=== PATIENT | female | born 2000 | race Caucasian/White ===

== ENCOUNTER 2021-02-12 03:56 | Day surgery (SDC) | payer OTHER ==
[2021-02-12 04:23] VITALS: BMI 27.3
[2021-02-12] MEDS ORDERED: hydrALAZINE 20 MG/ML VIAL SLOW IVP PRN (05:18)
== END 2021-02-12 06:59 | disposition home or self-care (01) ==
LOC: CSHLD/OP 03:56
PROVIDERS: ATTEND Student in an Organized Health Care Education/Training Program
DX: O47.1 False labor at or after 37 completed weeks of gestation (principal); Z3A.37 37 weeks gestation of pregnancy; Z79.899 Other long term (current) drug therapy

== ENCOUNTER 2021-02-22 08:14 | Outpatient (CLI) | payer OTHER ==
[2021-02-22 17:37] LABS: SARS-CoV-2 PCR by NAA Not Detected (NotDetected)
== END 2021-02-22 08:15 | disposition home or self-care (01) ==
LOC: CSHLAB 08:14
PROVIDERS: ATTEND Student in an Organized Health Care Education/Training Program
DX: Z01.812 Encounter for preprocedural laboratory examination (principal); Z20.822 Contact with and (suspected) exposure to COVID-19
CPT/HCPCS: U0003; U0005

== ENCOUNTER 2021-02-26 13:17 | Inpatient (IN) | payer OTHER ==
[2021-02-26 23:59] VITALS: BMI 27.3
[2021-02-27] MEDS ORDERED: Promethazine HCl 25 MG/ML VIAL IM PRN ×2 (01:58→09:48)
[2021-02-27] MEDS ORDERED: Carboprost 250 MCG/ML AMP IM PRN (01:58)
[2021-02-27] MEDS ORDERED: Ibuprofen 800 MG TAB PO PRN (01:58)
[2021-02-27] MEDS ORDERED: Butorphanol Tartrate 1 MG/ML VIAL SLOW IVP PRN (01:58)
[2021-02-27] MEDS ORDERED: HYDROcodone/Acetaminophen 5/325 mg Tablet PO PRN (01:58)
[2021-02-27] MEDS ORDERED: Ondansetron PF 4 MG/2 ML Vial IVP PRN ×2 (01:58→09:48)
[2021-02-27] MEDS ORDERED: Misoprostol 200 MCG TAB PR PRN (01:58)
[2021-02-27] MEDS ORDERED: Lidocaine 1% (PF) 30 ML VIAL SC PRN (01:58)
[2021-02-27] MEDS ORDERED: hydrALAZINE 20 MG/ML VIAL SLOW IVP PRN (01:58)
[2021-02-27] MEDS ORDERED: Diphenoxylate HCl/Atropine Tablet PO PRN (01:58)
[2021-02-27] MEDS ORDERED: Acetaminophen 500 MG TAB PO PRN (01:58)
[2021-02-27] MEDS ORDERED: Zolpidem Tartrate 5 MG TAB PO PRN (01:58)
[2021-02-27] MEDS ORDERED: Methylergonovine 0.2 MG/ML VIAL IM PRN (01:58)
[2021-02-27] MEDS ORDERED: NS w/ Oxytocin 30 units 500 ML IV SCH ×2 (02:00)
[2021-02-27] MEDS: Misoprostol 100 MCG TAB VAG SCH (02:15)
[2021-02-27 02:35] LABS: Hemoglobin 11.5 g/dL (12.0-15.5); Mean Corpuscular HGB CONC 32.2 g/dL (32.0-36.0); Mean Corpuscular Hemoglobin 26.8 pg (27.0-33.0); Mean Corpuscular Volume 83.2 fl (81.6-98.3); Mean Platelet Volume 13.8 fl (7.4-10.4); Platelet Count 178 10x3/uL (150-450); RBC Distribution Width 15.6 % (11.5-14.5); Red Blood Cell (RBC) Count 4.29 10x6/uL (3.90-5.03); White Blood Cell (WBC) Count 8.7 10x3/uL (3.5-10.5)
[2021-02-27 03:14] LABS: Syphilis Antibody Nonreactive (Nonreactive); Syphilis Antibody Index 0.04 S/CO (<1.00 Non-Reactive)
[2021-02-27 03:15] LABS: Hep B Surf Ag Non-Reactive S/CO (NonReactive)
[2021-02-27 03:19] LABS: HBSAg Index 0.19 S/CO (0-0.99)
[2021-02-27] MEDS ORDERED: Fentanyl 2 mcg/Bup 0.1% Cadd 100 ML ONE ×3 (09:34→22:52)
[2021-02-27] MEDS ORDERED: ePHEDrine Sulfate 50 MG/10 ML VIAL SLOW IVP PRN (09:48)
[2021-02-27] MEDS ORDERED: Hydrocerin (Eucerin) Cream 120 gm Jar TOP PRN (09:48)
[2021-02-27] MEDS ORDERED: Lactated Ringer's 500 ML IV PRN (09:48)
[2021-02-27] MEDS ORDERED: diphenhydrAMINE 50 MG/ML VIAL IVP PRN (09:48)
[2021-02-27] MEDS ORDERED: Acetaminophen 325 MG TAB PO PRN (09:48)
[2021-02-27] MEDS ORDERED: Naloxone HCl 0.4 mg/ml Vial IVP PRN ×2 (09:48)
[2021-02-27] MEDS ORDERED: Communication Order-Pharmacy FS SCH (10:00)
[2021-02-27] MEDS ORDERED: Fentanyl 2 mcg/Bupivacaine 0.1% Cassette 100 ML EPIDURAL SCH (10:00)
[2021-02-27] MEDS ORDERED: Fentanyl 100 MCG/2 ML VIAL ONE (10:43)
[2021-02-27] MEDS ORDERED: Terbutaline Sulfate 1 MG/ML VIAL FS SCH (14:30)
[2021-02-27] MEDS: Lactated Ringer's 1,000 ML IV SCH (14:38)
[2021-02-28] MEDS ORDERED: Misoprostol 200 MCG TAB ONE (00:52)
[2021-02-28] MEDS ORDERED: Methylergonovine 0.2 MG/ML VIAL ONE (00:53)
[2021-02-28 01:34] LABS: pH (Cord, venous) 7.295 (7.250-7.350)
[2021-02-28] MEDS ORDERED: hydrALAZINE 20 MG/ML VIAL SLOW IVP PRN (04:38)
[2021-02-28] MEDS ORDERED: HYDROcodone/Acetaminophen 5/325 mg Tablet PO PRN (04:38)
[2021-02-28] MEDS ORDERED: Lanolin Ointment 7 GM TUBE TOP PRN (04:38)
[2021-02-28] MEDS ORDERED: Ondansetron PF 4 MG/2 ML Vial IVP PRN (04:38)
[2021-02-28] MEDS ORDERED: Boostrix 0.5 ML (Tdap) VIAL IM ONE (04:38)
[2021-02-28] MEDS ORDERED: Benzocaine-Menthol 82.5 ML CAN TOP PRN (04:38)
[2021-02-28] MEDS ORDERED: Ibuprofen 800 MG TAB PO SCH (06:00)
[2021-02-28] MEDS: Prenatal Vitamin 1 TAB PO SCH (09:28)
[2021-02-28] MEDS: Docusate Calcium (SURFAK) 240 MG CAP PO SCH ×2 (09:28→22:31)
[2021-02-28] MEDS: Milk Of Magnesia 30 ML UDCUP PO SCH (09:29)
[2021-02-28] MEDS: Ibuprofen 800 MG TAB PO SCH (17:49)
[2021-03-01] MEDS: Ibuprofen 800 MG TAB PO SCH ×3 (00:06→17:00)
[2021-03-01 07:20] LABS: #Basophils 0.1 10x3/uL (0.0-0.2); #Eosinphils 0.2 10x3/uL (0.0-0.5); #Monocytes 1.3 10x3/uL (0.0-1.1); #Neutrophils 9.6 10x3/uL (1.5-8.4); %Basophils 0.4 % (0.0-2.0); %Eosinophils 1.5 % (0.0-6.0); %Lymphocytes 18.7 % (18.0-47.0); %Monocytes 9.2 % (0.0-10.0); %Neutrophils 69.6 % (40.0-75.0); Hemoglobin 10.2 g/dL (12.0-15.5); Mean Corpuscular HGB CONC 32.2 g/dL (32.0-36.0); Mean Corpuscular Hemoglobin 27.1 pg (27.0-33.0); Mean Corpuscular Volume 84.1 fl (81.6-98.3); Mean Platelet Volume 13.7 fl (7.4-10.4); Platelet Count 161 10x3/uL (150-450); RBC Distribution Width 16.2 % (11.5-14.5); Red Blood Cell (RBC) Count 3.77 10x6/uL (3.90-5.03); White Blood Cell (WBC) Count 13.7 10x3/uL (3.5-10.5)
[2021-03-01] MEDS ORDERED: Witch Hazel-Glycerin 1 EACH JAR TOP PRN (08:26)
[2021-03-01] MEDS: Milk Of Magnesia 30 ML UDCUP PO SCH (09:04)
[2021-03-01] MEDS: Docusate Calcium (SURFAK) 240 MG CAP PO SCH (09:05)
[2021-03-01] MEDS: Prenatal Vitamin 1 TAB PO SCH (09:05)
[2021-03-01] MEDS: Lactated Ringer's 1,000 ML IV SCH ×2 (10:01→10:04)
[2021-03-01] MEDS: Misoprostol 100 MCG TAB VAG SCH ×2 (10:01→10:04)
[2021-03-02] MEDS: Docusate Calcium (SURFAK) 240 MG CAP PO SCH ×2 (00:56→08:29)
[2021-03-02] MEDS: Ibuprofen 800 MG TAB PO SCH ×2 (00:56→08:29)
[2021-03-02 07:49] VITALS: BP 159/86; TEMP 98.1
[2021-03-02] MEDS: Milk Of Magnesia 30 ML UDCUP PO SCH (08:29)
[2021-03-02] MEDS: Prenatal Vitamin 1 TAB PO SCH (08:29)
== END 2021-03-02 15:05 | disposition home or self-care (01) | DRG 807 ==
LOC: CSHLD 23:26 → UNDOADMIN 23:26 → CSHLD 02-27 01:58 → CSHPP 02-28 04:00
PROVIDERS: ADMIT Student in an Organized Health Care Education/Training Program; ATTEND Student in an Organized Health Care Education/Training Program
PROC: 10D07Z6 Extraction of Products of Conception, Vacuum, Via Natural or Artificial Opening (ICD-10-PCS; principal; 2021-02-28)
PROC: 0UQMXZZ Repair Vulva, External Approach (ICD-10-PCS; 2021-02-28)
PROC: 10907ZC Drainage of Amniotic Fluid, Therapeutic from Products of Conception, Via Natural or Artificial Opening (ICD-10-PCS; 2021-02-28)
DX: O70.0 First degree perineal laceration during delivery (principal); Z37.0 Single live birth; Z3A.40 40 weeks gestation of pregnancy; O99.02 Anemia complicating childbirth; D50.0 Iron deficiency anemia secondary to blood loss (chronic)
CPT/HCPCS: 36415; 51702; 82805; 85025; 85027; 86780; 86850; 86900; 86901; 87340; J0595; J1200; J2001; J2590; J3105; J7120

== ENCOUNTER 2022-08-18 07:15 | Inpatient (IN) | payer OTHER ==
[2022-08-18] MEDS ORDERED: Bupivacaine 0.25% HCL 30 ML VIAL ONE (08:00)
[2022-08-18] MEDS ORDERED: Fentanyl 2 mcg/Bup 0.1% Cadd 100 ML ONE (08:13)
[2022-08-18 08:20] VITALS: BMI 27.8
[2022-08-18 08:20] LABS: Hemoglobin 11.5 g/dL (12.0-15.5); Mean Corpuscular HGB CONC 31.6 g/dL (32.0-36.0); Mean Corpuscular Hemoglobin 24.9 pg (27.0-33.0); Mean Corpuscular Volume 78.8 fl (81.6-98.3); Mean Platelet Volume 12.5 fl (7.4-10.4); Platelet Count 201 10x3/uL (150-450); RBC Distribution Width 15.9 % (11.5-14.5); Red Blood Cell (RBC) Count 4.62 10x6/uL (3.90-5.03); White Blood Cell (WBC) Count 9.7 10x3/uL (3.5-10.5)
[2022-08-18] MEDS ORDERED: Carboprost 250 MCG/ML AMP IM PRN (08:37)
[2022-08-18] MEDS ORDERED: Lidocaine 1% (PF) 30 ML VIAL SC PRN (08:37)
[2022-08-18] MEDS ORDERED: Promethazine HCl 25 MG/ML VIAL IM PRN ×2 (08:37→09:51)
[2022-08-18] MEDS ORDERED: HYDROcodone/Acetaminophen 5/325 mg Tablet PO PRN ×3 (08:37→17:36)
[2022-08-18] MEDS ORDERED: Ondansetron PF 4 MG/2 ML Vial IVP PRN ×3 (08:37→17:36)
[2022-08-18] MEDS ORDERED: Misoprostol 200 MCG TAB PR PRN (08:37)
[2022-08-18] MEDS ORDERED: Ibuprofen 800 MG TAB PO PRN (08:37)
[2022-08-18] MEDS ORDERED: hydrALAZINE 20 MG/ML VIAL SLOW IVP PRN ×2 (08:37→17:36)
[2022-08-18] MEDS ORDERED: Tranexamic Acid 1,000 MG/10 ML VIAL IVP PRN (08:37)
[2022-08-18] MEDS ORDERED: Acetaminophen 500 MG TAB PO PRN (08:37)
[2022-08-18] MEDS ORDERED: Diphenoxylate HCl/Atropine Tablet PO PRN (08:37)
[2022-08-18] MEDS ORDERED: Methylergonovine 0.2 MG/ML VIAL IM PRN (08:37)
[2022-08-18] MEDS ORDERED: Lactated Ringer's 1,000 ML IV SCH (08:45)
[2022-08-18] MEDS ORDERED: NS w/ Oxytocin 30 units 500 ML IV SCH ×2 (08:45)
[2022-08-18] MEDS ORDERED: fentaNYL 50 mcg/mL 1 mL Vial SLOW IVP PRN (09:12)
[2022-08-18] MEDS ORDERED: ePHEDrine Sulfate 50 MG/10 ML VIAL SLOW IVP PRN (09:51)
[2022-08-18] MEDS ORDERED: diphenhydrAMINE 50 MG/ML VIAL IVP PRN (09:51)
[2022-08-18] MEDS ORDERED: Moisturizing Cream (Eucerin) 113 GM JAR TOP PRN (09:51)
[2022-08-18] MEDS ORDERED: Lactated Ringer's 500 ML IV PRN (09:51)
[2022-08-18] MEDS ORDERED: Naloxone HCl 0.4 mg/ml Vial IVP PRN ×2 (09:51)
[2022-08-18] MEDS ORDERED: Acetaminophen 325 MG TAB PO PRN (09:51)
[2022-08-18] MEDS ORDERED: Fentanyl 2 mcg/Bupivacaine 0.1% Cassette 100 ML EPIDURAL SCH (10:00)
[2022-08-18] MEDS ORDERED: Communication Order-Pharmacy FS SCH (10:00)
[2022-08-18 10:01] LABS: Syphilis Antibody Nonreactive (Nonreactive); Syphilis Antibody Index 0.05 S/CO (<1.00 Non-Reactive)
[2022-08-18 10:03] LABS: HBSAg Index 0.15 S/CO (0-0.99); Hep B Surf Ag - L&D Non-Reactive S/CO (NonReactive)
[2022-08-18] MEDS ORDERED: Milk Of Magnesia 30 ML UDCUP PO PRN (17:36)
[2022-08-18] MEDS ORDERED: diphenhydrAMINE 25 MG CAP PO PRN (17:36)
[2022-08-18] MEDS ORDERED: Bisacodyl 10 MG SUPP PR PRN (17:36)
[2022-08-18] MEDS ORDERED: Preparation H Ointment 28 GM TUBE PR PRN (17:36)
[2022-08-18] MEDS ORDERED: Benzocaine-Menthol 82.5 ML CAN TOP PRN (17:36)
[2022-08-18] MEDS ORDERED: Lanolin Ointment 7 GM TUBE TOP PRN (17:36)
[2022-08-18] MEDS ORDERED: Boostrix 0.5 ML (Tdap) VIAL (>/=7 yrs of age) IM ONE (17:36)
[2022-08-18] MEDS ORDERED: Ferrous Sulfate 325 MG TAB PO SCH (18:00)
[2022-08-18] MEDS: Ibuprofen 800 MG TAB PO SCH (21:27)
[2022-08-18] MEDS: Docusate 100 MG CAP PO SCH (21:27)
[2022-08-19] MEDS: Ibuprofen 800 MG TAB PO SCH ×2 (06:05→14:30)
[2022-08-19] MEDS: Docusate 100 MG CAP PO SCH (07:58)
[2022-08-19] MEDS ORDERED: Ferrous Sulfate 325 MG TAB PO SCH (08:00)
[2022-08-19] MEDS ORDERED: Prenatal Vitamin 1 TAB PO SCH (09:00)
[2022-08-19 12:42] VITALS: BP 124/64; TEMP 98.9
== END 2022-08-19 15:45 | disposition home or self-care (01) | DRG 807 ==
LOC: CSHLD/OP 07:15 → CSHLD 08:10 → CSHPP 16:21
PROVIDERS: ADMIT Student in an Organized Health Care Education/Training Program; ATTEND Student in an Organized Health Care Education/Training Program
PROC: 10E0XZZ Delivery of Products of Conception, External Approach (ICD-10-PCS; principal; 2022-08-18)
PROC: 0HQ9XZZ Repair Perineum Skin, External Approach (ICD-10-PCS; 2022-08-18)
DX: O98.52 Other viral diseases complicating childbirth (principal); Z37.0 Single live birth; B00.9 Herpesviral infection, unspecified; Z3A.39 39 weeks gestation of pregnancy; O70.0 First degree perineal laceration during delivery
CPT/HCPCS: 51702; 85027; 86780; 86850; 86900; 86901; 87340; 99285; S0020